=== PATIENT | male | born 1960 | race Caucasian/White ===

== ENCOUNTER → 2025-01-01 13:58 | Outpatient (REF) | payer BC, SELFPAY | LOC: RCS 13:58 | PROVIDERS: ATTENDING PHYSICIAN Internal Medicine Cardiovascular Disease; FAMILY PHYSICIAN Family Medicine | DX: I45.10 Unspecified right bundle-branch block (principal); I10 Essential (primary) hypertension | CPT/HCPCS: 93306 ==